=== PATIENT | male | born 2000 | race Caucasian/White ===

== ENCOUNTER 2019-10-09 21:04 | Emergency (ER) | payer BC ==
[~2019-10-09] VITALS: Ht 175.2 cm; Wt 93.0 kg
[~2019-10-09 21:04] MED LIST: AUGMENTIN 875 M1 TAB PO; ZOFRAN4 MG/5 ML PO
[2019-10-09 21:08] VITALS: BP 163/89
[2019-10-09 21:56] LABS: BILIRUBIN NEGATIVE (NEGATIVE); BLOOD NEGATIVE (NEGATIVE); CLARITY CLEAR (CLEAR); COLOR YELLOW (YELLOW); GLUCOSE NEGATIVE (NEGATIVE); KETONE NEGATIVE (NEGATIVE); LEUKO ESTERASE NEGATIVE (NEGATIVE); NITRITE NEGATIVE (NEGATIVE); SPECIFIC GRAVITY 1.025 (1.005-1.030); UROBILINOGEN 0.2 E.U./dl (0.2-1.0)
== END 2019-10-09 22:35 | disposition home or self-care (01) ==
LOC: ED 21:04
PROVIDERS: Physician Assistant
DX: N34.2 Other urethritis (principal); F17.200 Nicotine dependence, unspecified, uncomplicated

== ENCOUNTER → 2019-10-28 | Outpatient (CLI) | payer BC ==
[2019-10-28 18:11] LABS: HEMATOCRIT 48.5 % (42.0-52.0); MEAN CELL VOLUME 88.5 fl (80.0-94.0); MEAN CORPUSCULAR HGB 30.5 pg (27.0-31.0); MEAN CORPUSCULAR HGB CONC 34.4 g/dl (33.0-37.0); MEAN PLATELET VOLUME 9.4 fl (9.6-12.3); RED BLOOD COUNT 5.48 10*6/uL (4.50-5.90); RED CELL DISTRI WIDTH 11.9 % (0-14.5); WHITE BLOOD COUNT 8.8 10*3/uL (4.8-10.8)
[2019-10-28 18:26] LABS: ALKALINE PHOSPHATASE 70 U/L (45-117); BUN 12 mg/dl (7-24); CHLORIDE 108 mmol/L (98-107); CHOLESTEROL 128 mg/dL (<200); CREATININE 1.33 mg/dL (0.70-1.30); HDL CHOLESTEROL 29 mg/dl (40-60); LDL CHOLESTEROL 46 mg/dL (9-159); POTASSIUM 3.9 mmol/L (3.5-5.1); SGOT/AST 26 IU/L (3-35); SGPT/ALT 47 U/L (12-78); SODIUM 138 mmol/L (136-145); TOTAL PROTEIN 7.8 gm/dL (6.4-8.2); TRIGLYCERIDES 263 mg/dl (<150); VLDL CHOLESTEROL 53 mg/dL (6-40)
[2019-10-31 06:09] LABS: HEP B CORE AB, IGM Negative (Negative); HEPATITIS B SURFACE AG Negative (Negative); HEPATITIS C VIRUS ANTIBODY <0.1 (0.0-0.9)
== END | disposition home or self-care (01) ==
LOC: LAB 17:41
PROVIDERS: Family Medicine
DX: N34.2 Other urethritis (principal)

== ENCOUNTER → 2019-11-04 | Outpatient (CLI) | payer BC ==
[2019-11-04 17:59] LABS: BUN 15 mg/dl (7-24); CHLORIDE 107 mmol/L (98-107); CREATININE 1.31 mg/dL (0.70-1.30); POTASSIUM 4.1 mmol/L (3.5-5.1); SODIUM 140 mmol/L (136-145)
== END ==
LOC: LAB 17:07
PROVIDERS: Family Medicine
DX: R79.82 Elevated C-reactive protein (CRP) (principal)

== ENCOUNTER 2019-11-30 10:01 | Emergency (ER) | payer BC ==
[~2019-11-30] VITALS: Ht 172.7 cm; Wt 99.8 kg
[2019-11-30 10:21] VITALS: BP 142/82
[2019-11-30 10:52] LABS: BASO # 0.1 10*3/uL (0.0-0.1); BASO % 0.8 % (0.0-1.0); EOS # 0.1 10*3/uL (0.0-0.4); EOS % 1.5 % (1.0-4.0); HEMATOCRIT 52.1 % (42.0-52.0); LYMPH # 1.9 10*3/uL (1.3-4.4); LYMPH % 22.3 % (27.0-41.0); MEAN CELL VOLUME 89.8 fl (80.0-94.0); MEAN CORPUSCULAR HGB CONC 34.5 g/dl (33.0-37.0); MEAN PLATELET VOLUME 9.5 fl (9.6-12.3); MONO # 0.8 10*3/uL (0.1-1.0); MONO % 9.9 % (3.0-9.0); NEUT # 5.5 10*3/uL (2.3-7.9); NEUT % 65.3 % (47.0-73.0); PLATELET COUNT AUTOMATED 302 10*3/uL (130-400); RED CELL DISTRI WIDTH 11.9 % (0-14.5); WHITE BLOOD COUNT 8.4 10*3/uL (4.8-10.8)
[2019-11-30 11:06] LABS: URINE AMPHETAMINES < 1000 (1000ng/ml); URINE BARBITURATES < 200 (200ng/ml); URINE BENZODIAZEPINES < 200 (200ng/ml); URINE CANNABINOIDS (THC) > 50 (50ng/ml); URINE COCAINE < 300 (300ng/ml); URINE METHADONE < 300 (300ng/ml); URINE OPIATES < 300 (300ng/ml)
[2019-11-30 11:08] LABS: URINE PHENCYCLIDINE < 25 (25ng/ml)
[2019-11-30 11:12] LABS: BILIRUBIN NEGATIVE (NEGATIVE); BLOOD NEGATIVE (NEGATIVE); CLARITY CLEAR (CLEAR); COLOR YELLOW (YELLOW); GLUCOSE NEGATIVE (NEGATIVE); KETONE NEGATIVE (NEGATIVE); PH 6.5 (5.0-9.0); SPECIFIC GRAVITY 1.015 (1.005-1.030); UROBILINOGEN 0.2 E.U./dl (0.2-1.0)
[2019-11-30 11:13] LABS: LEUKO ESTERASE NEGATIVE (NEGATIVE); NITRITE NEGATIVE (NEGATIVE)
[2019-11-30 11:15] LABS: ALBUMIN 4.5 gm/dl (3.1-4.5); ALKALINE PHOSPHATASE 74 U/L (45-117); BUN 15 mg/dl (7-24); CHLORIDE 104 mmol/L (98-107); CREATININE 1.24 mg/dL (0.70-1.30); LIPASE 95 U/L (73-393); POTASSIUM 3.9 mmol/L (3.5-5.1); SGOT/AST 25 IU/L (3-35); SGPT/ALT 55 U/L (12-78); SODIUM 139 mmol/L (136-145); TOTAL PROTEIN 8.5 gm/dL (6.4-8.2)
[2019-11-30 11:20] LABS: MUCOUS 1+; WBC 0-2 wbc/hpf (0-5)
== END 2019-11-30 11:43 | disposition home or self-care (01) ==
LOC: ED 10:01
PROVIDERS: Emergency Medicine
DX: R10.11 Right upper quadrant pain (principal)

== ENCOUNTER 2020-02-13 11:13 | Emergency (ER) | payer BC ==
[2020-02-13 11:18] VITALS: BP 128/71
[2020-02-13] MEDS ORDERED: CEPHALEXIN500 M1 PO (11:45)
== END 2020-02-13 12:19 | disposition home or self-care (01) ==
LOC: ED 11:13
DX: T24.231A Burn of second degree of right lower leg, initial encounter (principal); X08.8XXA Exposure to other specified smoke, fire and flames, initial encounter; Y93.89 Activity, other specified; Y92.89 Other specified places as the place of occurrence of the external cause; Y99.8 Other external cause status

== ENCOUNTER 2020-03-28 06:41 | Emergency (ER) | payer BC ==
[~2020-03-28] VITALS: Ht 175.2 cm; Wt 88.5 kg
[~2020-03-28 06:41] MED LIST changes: +CEPHALEXIN500 M1 PO
[2020-03-28 07:13] VITALS: BP 122/74
[2020-03-28] MEDS ORDERED: Motrin,Rufen800 MG PO (07:24)
[2020-03-28] MEDS ORDERED: AMOXICILLIN875 MG PO (07:24)
== END 2020-03-28 07:48 | disposition home or self-care (01) ==
LOC: ED 06:41
DX: K02.9 Dental caries, unspecified (principal)

== ENCOUNTER 2020-06-21 16:47 | Emergency (ER) | payer BC ==
[~2020-06-21] VITALS: Wt 90.7 kg
[~2020-06-21 16:47] MED LIST changes: +AMOXICILLIN875 MG PO; +Motrin,Rufen800 MG PO
[2020-06-21 16:52] VITALS: BP 160/87
[2020-06-21 17:24] LABS: BILIRUBIN Negative (Negative); BLOOD Negative (Negative); CLARITY Clear (Clear); COLOR Yellow (Yellow); GLUCOSE Negative (Negative); KETONE Trace (Negative); LEUKO ESTERASE Negative (Negative); NITRITE Negative (Negative); PH 5.5 (4.5-8.0); SPECIFIC GRAVITY >= 1.030 (1.001-1.030)
[2020-06-21 17:26] LABS: BASO # 0.1 10*3/uL (0.0-0.1); BASO % 0.7 % (0.0-1.0); EOS # 0.2 10*3/uL (0.0-0.4); EOS % 2.4 % (1.0-4.0); HEMATOCRIT 47.2 % (42.0-52.0); LYMPH # 2.6 10*3/uL (1.3-4.4); MEAN CELL VOLUME 87.6 fl (80.0-94.0); MEAN CORPUSCULAR HGB 30.6 pg (27.0-31.0); MEAN PLATELET VOLUME 9.6 fl (9.6-12.3); MONO # 0.9 10*3/uL (0.1-1.0); MONO % 10.3 % (3.0-9.0); NEUT % 56.4 % (47.0-73.0); PLATELET COUNT AUTOMATED 317 10*3/uL (130-400); RED BLOOD COUNT 5.39 10*6/uL (4.50-5.90); RED CELL DISTRI WIDTH 11.9 % (0-14.5); WHITE BLOOD COUNT 8.8 10*3/uL (4.8-10.8)
[2020-06-21 17:32] LABS: RBC 0-2 rbc/hpf (0-2)
[2020-06-21 17:33] LABS: BACTERIA TRACE; EPITHELIAL CELLS 0-2; FINE GRANULAR CAST 0-2; HYALINE CAST 0-2; WBC 0-2 wbc/hpf (0-5)
[2020-06-21 17:39] LABS: BUN 10 mg/dl (7-24); CHLORIDE 108 mmol/L (98-107); CREATININE 1.19 mg/dL (0.70-1.30); POTASSIUM 3.7 mmol/L (3.5-5.1); SODIUM 140 mmol/L (136-145)
[2020-06-21] MEDS ORDERED: JOCK ITCH RELIE14 GM T (17:42)
== END 2020-06-21 17:48 | disposition home or self-care (01) ==
LOC: ED 16:47
PROVIDERS: Nurse Practitioner Family
DX: B35.6 Tinea cruris (principal); R10.30 Lower abdominal pain, unspecified; F17.200 Nicotine dependence, unspecified, uncomplicated; Z79.2 Long term (current) use of antibiotics; Z79.899 Other long term (current) drug therapy

== ENCOUNTER 2020-11-22 13:09 | Emergency (ER) | payer BC ==
[~2020-11-22] VITALS: Ht 177.8 cm; Wt 86.2 kg
[~2020-11-22 13:09] MED LIST changes: +JOCK ITCH RELIE14 GM T
[2020-11-22] MEDS ORDERED: SEPTDS PO (13:55)
[2020-11-22] MEDS ORDERED: CEPHALEXIN500 M1 PO (13:55)
== END 2020-11-22 14:14 | disposition home or self-care (01) ==
LOC: ED 13:09
DX: L02.31 Cutaneous abscess of buttock (principal); Z79.899 Other long term (current) drug therapy

== ENCOUNTER 2022-01-07 16:28 | Emergency (ER) | payer BC ==
[~2022-01-07] VITALS: Ht 175.2 cm; Wt 90.7 kg
[~2022-01-07 16:28] MED LIST changes: +SEPTDS PO
[2022-01-07 16:47] VITALS: BP 135/84
== END 2022-01-07 18:16 | disposition home or self-care (01) ==
LOC: ED 16:28
DX: U07.1 COVID-19 (principal); R50.9 Fever, unspecified; F17.200 Nicotine dependence, unspecified, uncomplicated

== ENCOUNTER 2022-07-26 17:36 | Emergency (ER) | payer OTHER ==
[~2022-07-26] VITALS: Ht 172.7 cm; Wt 90.7 kg
[2022-07-26 18:00] VITALS: BP 138/90
== END 2022-07-26 19:19 | disposition home or self-care (01) ==
LOC: ED 17:36
DX: S93.401A Sprain of unspecified ligament of right ankle, initial encounter (principal); Z98.890 Other specified postprocedural states; X50.1XXA Overexertion from prolonged static or awkward postures, initial encounter; Y93.9 Activity, unspecified; Y92.89 Other specified places as the place of occurrence of the external cause; Y99.8 Other external cause status

== ENCOUNTER 2022-08-05 10:23 | Emergency (ER) | payer OTHER ==
[~2022-08-05] VITALS: Ht 172.7 cm; Wt 90.7 kg
[2022-08-05 10:46] VITALS: BP 122/77
== END 2022-08-05 12:47 | disposition home or self-care (01) ==
LOC: ED 10:23
DX: S62.307A Unspecified fracture of fifth metacarpal bone, left hand, initial encounter for closed fracture (principal); W22.8XXA Striking against or struck by other objects, initial encounter; Y93.89 Activity, other specified; Y92.89 Other specified places as the place of occurrence of the external cause; Y99.8 Other external cause status

== ENCOUNTER 2025-01-09 23:40 | Emergency (ER) | payer OTHER ==
[2025-01-09 23:49] VITALS: BP 102/76
[2025-01-10] MEDS ORDERED: DEXTROSE 50% 25 GM/50 ML SYR IV ONE
[2025-01-10 00:13] LABS: BASO # 0.1 10*3/uL (0.0-0.1); BASO % 0.6 % (0.0-1.0); EOS # 0.2 10*3/uL (0.0-0.4); EOS % 2.4 % (1.0-4.0); MEAN CELL VOLUME 91.3 fl (80.0-94.0); MEAN CORPUSCULAR HGB 31.3 pg (27.0-31.0); MEAN PLATELET VOLUME 9.4 fl (9.6-12.3); MONO # 1.1 10*3/uL (0.1-1.0); MONO % 11.5 % (3.0-9.0); NEUT # 5.0 10*3/uL (2.3-7.9); NEUT % 51.8 % (47.0-73.0); NUCLEATED RED BLOOD CELL 0.0 % (0.0-0.0); NUCLEATED RED BLOOD CELL 0.0 10*3/uL (0.0-0.0); PLATELET COUNT AUTOMATED 337 10*3/uL (130-400); RED CELL DISTRI WIDTH 12.5 % (0-14.5)
[2025-01-10 00:28] LABS: BUN 16 mg/dl (9-23); ETHYL ALCOHOL 142.6 mg/dl (<3)
== END 2025-01-10 04:17 | disposition home or self-care (01) ==
LOC: ED 23:40
PROVIDERS: Internal Medicine
DX: F10.129 Alcohol abuse with intoxication, unspecified (principal); E87.6 Hypokalemia; E16.2 Hypoglycemia, unspecified; Y90.6 Blood alcohol level of 120-199 mg/100 ml

== ENCOUNTER → 2025-01-11 | Outpatient (CLI) | payer OTHER ==
[2025-01-11 11:41] LABS: BASO # 0.1 10*3/uL (0.0-0.1); BASO % 0.8 % (0.0-1.0); EOS # 0.2 10*3/uL (0.0-0.4); EOS % 2.1 % (1.0-4.0); MEAN CELL VOLUME 94.1 fl (80.0-94.0); MEAN CORPUSCULAR HGB 31.9 pg (27.0-31.0); MEAN PLATELET VOLUME 9.6 fl (9.6-12.3); MONO # 0.9 10*3/uL (0.1-1.0); MONO % 12.2 % (3.0-9.0); NEUT # 4.3 10*3/uL (2.3-7.9); NEUT % 60.3 % (47.0-73.0); NUCLEATED RED BLOOD CELL 0.0 % (0.0-0.0); NUCLEATED RED BLOOD CELL 0.0 10*3/uL (0.0-0.0); PLATELET COUNT AUTOMATED 305 10*3/uL (130-400); RED CELL DISTRI WIDTH 12.9 % (0-14.5)
[2025-01-11 12:06] LABS: BUN 12 mg/dl (9-23); FREE T4 0.72 ng/dl (0.89-1.76); LDL CHOLESTEROL 48 mg/dL (9-159); SGPT/ALT 44 U/L (5-49)
== END | disposition home or self-care (01) ==
LOC: RESCLI 10:03 → LAB 10:03
PROVIDERS: Student in an Organized Health Care Education/Training Program; ATTEND Internal Medicine
DX: E16.2 Hypoglycemia, unspecified (principal); K92.1 Melena; F17.200 Nicotine dependence, unspecified, uncomplicated; E66.9 Obesity, unspecified; Z71.89 Other specified counseling; Z71.6 Tobacco abuse counseling; Z79.899 Other long term (current) drug therapy

== ENCOUNTER 2025-04-15 12:40 | Emergency (ER) | payer OTHER ==
[~2025-04-15] VITALS: Ht 172.7 cm; Wt 97.5 kg
[2025-04-15 12:49] VITALS: BP 128/83
[2025-04-15] MEDS ORDERED: PREDNISONE50 MG PO (13:33)
[2025-04-15] MEDS ORDERED: predniSONE 20 MG TAB PO ONE (13:35)
== END 2025-04-15 13:37 | disposition home or self-care (01) ==
LOC: ED 12:40
DX: S66.911A Strain of unspecified muscle, fascia and tendon at wrist and hand level, right hand, initial encounter (principal); X58.XXXA Exposure to other specified factors, initial encounter; Y93.89 Activity, other specified; Y92.810 Car as the place of occurrence of the external cause; Y99.8 Other external cause status